=== PATIENT | male | born 1960 | race African-American/Black ===

== ENCOUNTER 2018-04-04 01:56 | Emergency (ER) | payer SELFPAY ==
[~2018-04-04] VITALS: Ht 182.9 cm; Wt 100.0 kg
[2018-04-04 03:33] VITALS: BP 137/79
== END 2018-04-04 03:41 | disposition home or self-care (01) ==
LOC: EMS 01:56
DX: Z02.89 Encounter for other administrative examinations (principal); S00.33XA Contusion of nose, initial encounter; R04.0 Epistaxis; V89.2XXA Person injured in unspecified motor-vehicle accident, traffic, initial encounter; Y93.89 Activity, other specified; Y92.410 Unspecified street and highway as the place of occurrence of the external cause; Y99.8 Other external cause status
CPT/HCPCS: 70450; 70486; 72125